=== PATIENT | male | born 1970 | race Caucasian/White ===

== ENCOUNTER 2017-05-05 00:21 | Emergency (ER) | payer MEDICARE, MEDICAID ==
--- NOTE | 2017-05-05 00:39 | EDM.PDOC ---
ED HPI GENERAL MEDICAL PROBLEM - General Chief Complaint: Chest Pain Stated Complaint: [facility] Time Seen by Provider: 05/05/17 00:39 - History of Present Illness INITIAL COMMENTS - FREE TEXT/NARRATIVE: 46-year-old male presents to the emergency room with severe chest pain and abdominal pain. Patient had fairly recent with the last hour onset of severe chest discomfort on the right side of his chest and in his midabdomen. He also complains of his heart was beating really fast. Patient has not had pain like this in the past there working with him on his anxiety. Patient denies any nausea vomiting fevers or chills. Patient describes the chest pain as burning in nature and a little bit sharp at times he points to the substernal area. The patient does not have problems with reflux or dyspepsia in the past. Right Pain Score (Numeric/FACES): 10 - Related Data Allergies Allergy/AdvReac Type Severity Reaction Status Date / Time No Known Allergies Allergy Verified 05/05/17 00:25 Home Meds: Home Meds Loratadine 10 mg PO DAILY 05/05/17 [History] Multivit-Min/FA/Lycopene/Lut [Certavite Sr-Antioxidant Tab] 1 tab PO DAILY 05/05 [History] Naproxen Sodium [Aleve] 220 mg PO BID PRN 05/05/17 [History] Pantoprazole Sodium [Protonix] 40 mg PO Q24H #30 tablet. 05/05/17 [Rx] Polyethylene Glycol 3350 [MiraLAX] 17 gm PO DAILY 05/05/17 [History] Sucralfate [Carafate] 1 gm PO QID #28 tablet 05/05/17 [Rx] buPROPion HCl [Wellbutrin Xl] 300 mg PO ACBREAKFAST 05/05/17 [History] buPROPion [buPROPion XL] 150 mg PO ACBREAKFAST 05/05/17 [History] Past Medical History HEENT History: Reports: Impaired Vision Other HEENT History: Wears reading glasses Genitourinary History: Reports: Urinary Incontinence Social & Family History - Tobacco Use Smoking Status *Q: Never Smoker - Caffeine Use Caffeine Use: Reports: None - Recreational Drug Use Recreational Drug Use: No ED ROS GENERAL - Review of Systems Review Of Systems: See Below Constitutional: Reports: No Symptoms HEENT: Reports: No Symptoms Respiratory: Reports: No Symptoms Cardiovascular: Reports: Chest Pain. Denies: Dyspnea on Exertion, Palpitations GI/Abdominal: Reports: Abdominal Pain (Epigastric). Denies: Constipation, Diarrhea, Nausea, Vomiting : Reports: No Symptoms Musculoskeletal: Reports: No Symptoms Skin: Reports: No Symptoms Neurological: Reports: No Symptoms Psychiatric: Reports: Anxiety, Other (Patient does not feel overly anxious at this time) Hematologic/Lymphatic: Reports: No Symptoms Immunologic: Reports: No Symptoms ED EXAM, GENERAL - Physical Exam Exam: See Below Exam Limited By: No Limitations General Appearance: Alert, No Apparent Distress Head: Atraumatic, Normocephalic Neck: Normal Inspection, Supple, Non-Tender, Full Range of Motion Respiratory/Chest: No Respiratory Distress, Lungs Clear, Normal Breath Sounds, Chest Non-Tender Cardiovascular: Regular Rate, Rhythm, No Edema, No Murmur GI/Abdominal: Normal Bowel Sounds, Soft, Other (She has marked midepigastric and left upper quadrant discomfort with palpation to a lesser degree right upper quadrant tenderness with palpation.). No: Distended, Guarding, Rigid, Rebound Back Exam: Normal Inspection. No: CVA Tenderness (L), CVA Tenderness (R), Vertebral Tenderness Extremities: Normal Inspection, No Pedal Edema Neurological: Alert, Oriented Psychiatric: Normal Affect, Normal Mood Course - Vital Signs Last Recorded V/S: Last Vital Signs Temp 35.9 C 05/05/17 00:25 Pulse 76 05/05/17 00:25 Resp 23 H 05/05/17 00:25 BP 141/90 H 05/05/17 00:25 Pulse Ox 95 05/05/17 00:25 - Orders/Labs/Meds Orders: Active Orders 24 hr Category Date Time Status EKG 12 Lead [EKG Documentation Completion] [RC] STAT Care 05/05/17 00:41 Active Chest 2V [CR] Stat Exams 05/05/17 00:47 Taken Labs: Laboratory Tests 05/05/17 05/05/17 05/05/17 Range/Units 00:30 00:30 00:30 WBC 5.69 (4.23-9.07) K/mm3 RBC 5.26 (4.63-6.08) M/mm3 Hgb 15.1 (13.7-17.5) gm/L Hct 44.7 (40.1-51.0) % MCV 85.0 (79.0-92.2) fl MCH 28.7 (25.7-32.2) pg MCHC 33.8 (32.2-35.5) g/dl RDW Std Deviation 40.1 (35.1-43.9) fL Plt Count 278 (163-337) K/mm3 MPV 9.4 (9.4-12.3) fl Neutrophils % (Manual) 61 H (40-60) % Band Neutrophils % 0 (0-10) % Lymphocytes % (Manual) 29 (20-40) % Atypical Lymphs % 0 % Monocytes % (Manual) 6 (2-10) % Eosinophils % (Manual) 4 (0.8-7.0) % Basophils % (Manual) 0 L (0.2-1.2) Platelet Estimate Adequate RBC Morph Comment Normal PT 10.9 (8.0-13.0) SECONDS INR 1.02 APTT 27 (22-36) SECONDS Sodium 142 (136-145) mEq/L Potassium 3.6 (3.5-5.1) mEq/L Chloride 105 (98-107) mEq/L Carbon Dioxide 25 (21-32) mEq/L Anion Gap 15.6 H (5-15) BUN 26 H (7-18) mg/dL Creatinine 1.1 (0.7-1.3) mg/dL Est Cr Clr Drug Dosing 82.91 mL/min Estimated GFR (MDRD) > 60 (>60) mL/min BUN/Creatinine Ratio 23.6 H (14-18) Glucose 125 H (74-106) mg/dL Calcium 8.7 (8.5-10.1) mg/dL Total Bilirubin 0.7 (0.2-1.0) mg/dL AST 23 (15-37) U/L ALT 29 (16-63) U/L Alkaline Phosphatase 81 (46-116) U/L Troponin I < 0.017 (0.00-0.056) ng/mL Total Protein 7.1 (6.4-8.2) g/dl Albumin 4.4 (3.4-5.0) g/dl Globulin 2.7 gm/dL Albumin/Globulin Ratio 1.6 (1-2) Urine Color (Yellow) Urine Appearance (Clear) Urine pH (5.0-8.0) Ur Specific [place] (1.005-1.030) Urine Protein (Negative) Urine Glucose (UA) (Negative) Urine Ketones (Negative) Urine Occult Blood (Negative) Urine Nitrite (Negative) Urine Bilirubin (Negative) Urine Urobilinogen (0.2-1.0) Ur Leukocyte Esterase (Negative) Urine RBC (0-5) /hpf Urine WBC (0-5) /hpf Ur Epithelial Cells (0-5) /hpf Amorphous Sediment (NOT SEEN) /hpf Urine Bacteria (FEW) /hpf Urine Mucus (FEW) /hpf /16/18 Range/Units 03:15 WBC (4.23-9.07) K/mm3 RBC (4.63-6.08) M/mm3 Hgb (13.7-17.5) gm/L Hct (40.1-51.0) % MCV (79.0-92.2) fl MCH (25.7-32.2) pg MCHC (32.2-35.5) g/dl RDW Std Deviation (35.1-43.9) fL Plt Count (163-337) K/mm3 MPV (9.4-12.3) fl Neutrophils % (Manual) (40-60) % Band Neutrophils % (0-10) % Lymphocytes % (Manual) (20-40) % Atypical Lymphs % % Monocytes % (Manual) (2-10) % Eosinophils % (Manual) (0.8-7.0) % Basophils % (Manual) (0.2-1.2) Platelet Estimate RBC Morph Comment PT (8.0-13.0) SECONDS INR APTT (22-36) SECONDS Sodium (136-145) mEq/L Potassium (3.5-5.1) mEq/L Chloride (98-107) mEq/L Carbon Dioxide (21-32) mEq/L Anion Gap (5-15) BUN (7-18) mg/dL Creatinine (0.7-1.3) mg/dL Est Cr Clr Drug Dosing mL/min Estimated GFR (MDRD) (>60) mL/min BUN/Creatinine Ratio (14-18) Glucose (74-106) mg/dL Calcium (8.5-10.1) mg/dL Total Bilirubin (0.2-1.0) mg/dL AST (15-37) U/L ALT (16-63) U/L Alkaline Phosphatase (46-116) U/L Troponin I (0.00-0.056) ng/mL Total Protein (6.4-8.2) g/dl Albumin (3.4-5.0) g/dl Globulin gm/dL Albumin/Globulin Ratio (1-2) Urine Color Yellow (Yellow) Urine Appearance Clear (Clear) Urine pH 7.5 (5.0-8.0) Ur Specific [place] 1.020 (1.005-1.030) Urine Protein Trace H (Negative) Urine Glucose (UA) Negative (Negative) Urine Ketones Trace H (Negative) Urine Occult Blood Negative (Negative) Urine Nitrite Negative (Negative) Urine Bilirubin Negative (Negative) Urine Urobilinogen 2.0 H (0.2-1.0) Ur Leukocyte Esterase Negative (Negative) Urine RBC 0-5 (0-5) /hpf Urine WBC 0-5 (0-5) /hpf Ur Epithelial Cells 0-5 (0-5) /hpf Amorphous Sediment Many H (NOT SEEN) /hpf Urine Bacteria Moderate H (FEW) /hpf Urine Mucus Few (FEW) /hpf Meds: Medications Discontinued Medications Generic Name Dose Route Start Last Admin Trade Name Freq PRN Reason Stop Dose Admin Aspirin 324 mg 05/05/17 00:47 05/05/17 00:51 Aspirin PO 05/05/17 00:48 324 mg ONETIME ONE Administration Al Hydroxide/Mg Hydroxide 30 0 ml 05/05/17 00:47 05/05/17 01:22 ml/ Lidocaine HCl 15 ml PO 05/05/17 00:48 45 ml ONETIME ONE Administration Pantoprazole Sodium 40 mg 05/05/17 03:03 05/05/17 03:11 Protonix PO 05/05/17 03:04 40 mg ONETIME ONE Administration Sucralfate 1 gm 05/05/17 04:48 05/05/17 04:58 Carafate PO 05/05/17 04:49 1 gm ONETIME ONE Administration - Re-Assessments/Exams Free Text/Narrative Re-Assessment/Exam: 05/05/17 03:02 Patient had significant improvement from his chest discomfort after the GI cocktail. Repeat examination shows no epigastric discomfort no right or left upper quadrant discomfort he has some suprapubic discomfort and some discomfort just to the right. No rigidity rebound or guarding noted He still complains of some lower abdominal discomfort we'll check a UA. 05/05/17 04:45 Urinalysis does not suggest an infectious process he has some contamination present. Patient will be discharged on PPI therapy and a short course of Carafate. Departure - Departure Time of Disposition: 04:50 Disposition: Home, Self-Care 01 Clinical Impression: Chest pain, Gastroesophageal reflux disease - Discharge Information Prescriptions: Pantoprazole Sodium [Protonix] 40 mg PO Q24H #30 tablet. Sucralfate [Carafate] 1 gm PO QID #28 tablet Referrals: Krishan Rea MD [Primary Care Provider] - Forms: ED Department Discharge Additional Instructions: Return to the emergency room with any questions problems worsening symptoms. Follow-up with your regular doctor this next week. Discuss if you should have a stress test done. You been started on 2 new medications the first one is Protonix take this 30-60 minutes before your morning meal. The second medication is Carafate take this 4 times a day before each meal and at bedtime for 1 week. Take your routine medications either 1 hour before 2 hours after taking the Carafate - My Orders Last 24 Hours: My Active Orders 05/05/17 00:41 EKG 12 Lead [EKG Documentation Completion] [RC] STAT 05/05/17 00:47 Chest 2V [CR] Stat - Assessment/Plan Last 24 Hours: My Active Orders 05/05/17 00:41 EKG 12 Lead [EKG Documentation Completion] [RC] STAT 05/05/17 00:47 Chest 2V [CR] Stat
[2017-05-05] MEDS: Aspirin 81 MG Tab.Chew PO ONE (00:51)
[2017-05-05] MEDS: Alum Hydrox/Mag Hydrox/Simeth 30 ML, Lidocaine 2% 15 ML PO ONE ×2 (01:22)
[2017-05-05] MEDS: Pantoprazole 40 MG Tab.CR PO ONE (03:11)
[2017-05-05] MEDS: Sucralfate Suspension 1 GM/10 ML Cup PO ONE (04:58)
--- NOTE | 2017-05-05 08:17 | CR ---
Chest: Two views of the chest were obtained. Comparison: No prior chest x-ray. Heart size and mediastinum are normal. Lungs are felt to be clear. Bony structures are within normal limits for the patient's age. Impression: 1. Nothing acute is identified on two-view chest x-ray. Diagnostic code #1
== END 2017-05-05 05:25 | disposition home or self-care (01) ==
LOC: JD.ED 00:21
DX: K21.9 Gastro-esophageal reflux disease without esophagitis (principal); Z79.899 Other long term (current) drug therapy
CPT/HCPCS: 36415; 71046; 80053; 81001; 84484; 85025; 85610; 85730; 93005; 99285; A9270

== ENCOUNTER 2017-08-14 22:32 | Emergency (ER) | payer MEDICARE, MEDICAID ==
[2017-08-15] MEDS ORDERED: Ondansetron 4 MG/2 ML SDV IVPUSH ONE (02:10)
[2017-08-15] MEDS ORDERED: HYDROmorphone 0.5 MG/0.5 ML SYRINGE IVPUSH ONE (02:11)
[2017-08-15] MEDS ORDERED: Sodium Chloride 0.9% 1,000 ML IV SCH (02:15)
--- NOTE | 2017-08-15 02:25 | EDM.PDOC ---
ED HPI GENERAL MEDICAL PROBLEM - General Chief Complaint: Gastrointestinal Problem Stated Complaint: [facility] Time Seen by Provider: 08/15/17 01:39 Source of Information: Reports: Patient, Other (2 caregivers from [facility]) History Limitations: Reports: No Limitations - History of Present Illness INITIAL COMMENTS - FREE TEXT/NARRATIVE: The patient states that he developed lower abdominal cramps, nausea, and vomiting around 17:00 this evening, after eating at a [employer] sandwich for lunch. He reportedly had watery diarrhea 2 days ago, but none today. No recent fever. No urinary symptoms. The patient took 2 doses of an [id number] gastrointestinal medicine at 19: 00 and 21:00, without relief. No prior similar symptoms. The patient's PCP is Dr. Rea. Abdomen Pain Score (Numeric/FACES): 10 - Related Data Allergies Allergy/AdvReac Type Severity Reaction Status Date / Time No Known Allergies Allergy Verified 05/05/17 00:25 Home Meds: Home Meds Loratadine 10 mg PO DAILY 05/05/17 [History] Multivit-Min/FA/Lycopene/Lut [Certavite Sr-Antioxidant Tab] 1 tab PO DAILY 05/05 [History] Polyethylene Glycol 3350 [MiraLAX] 17 gm PO DAILY 05/05/17 [History] buPROPion HCl [Wellbutrin Xl] 300 mg PO ACBREAKFAST 05/05/17 [History] buPROPion [buPROPion XL] 150 mg PO ACBREAKFAST 05/05/17 [History] Naproxen Sodium [Aleve] 220 mg PO BID PRN 08/14/17 [History] Prazosin [Minpress] 2 mg PO BEDTIME 08/14/17 [History] Ondansetron [Zofran ODT] 1 tab PO Q8H PRN #10 tab.dis 08/15/17 [Rx] Past Medical History HEENT History: Reports: Allergic Rhinitis, Impaired Vision Other HEENT History: Wears reading glasses Gastrointestinal History: Reports: Diverticulosis (per CT scan 08/14/2017) Genitourinary History: Reports: Urinary Incontinence Musculoskeletal History: Reports: Back Pain, Chronic, Other (See Below) ( Chronic right foot pain) Neurological History: Reports: Headaches, Chronic Psychiatric History: Reports: Developmental Delay Social & Family History - Tobacco Use Smoking Status *Q: Never Smoker - Caffeine Use Caffeine Use: Reports: None - Alcohol Use Alcohol Use History: Yes Alcohol Use Frequency: Socially - Recreational Drug Use Recreational Drug Use: No - Living Situation & Occupation Living situation: Reports: Single, Alone Occupation: Unemployed ED ROS GENERAL - Review of Systems Review Of Systems: ROS reveals no pertinent complaints other than HPI. ED EXAM, GI/ABD - Physical Exam Exam: See Below Exam Limited By: No Limitations General Appearance: Alert, WD/WN, No Apparent Distress Eyes: Bilateral: Normal Appearance, EOMI Ears: Normal External Exam, Hearing Grossly Normal Nose: Normal Inspection, No Blood Throat/Mouth: Normal Inspection, Normal Lips, Normal Voice, No Airway Compromise Head: Atraumatic, Normocephalic Neck: Normal Inspection, Full Range of Motion Respiratory/Chest: No Respiratory Distress, Lungs Clear, Normal Breath Sounds, No Accessory Muscle Use Cardiovascular: Normal Peripheral Pulses, Regular Rate, Rhythm, No Edema, No Gallop, No JVD, No Murmur, No Rub GI/Abdominal Exam: Normal Bowel Sounds, Soft, No Organomegaly, No Distention, No Abnormal Bruit, No Mass, Tender (Lower abdomen only. Nontender elsewhere.) (Male) Exam: Deferred Rectal (Males) Exam: Deferred Back Exam: Normal Inspection, Full Range of Motion. No: CVA Tenderness (L), CVA Tenderness (R) Extremities: Normal Inspection, Normal Range of Motion, No Pedal Edema, Normal Capillary Refill Neurological: Alert, Oriented, No Motor/Sensory Deficits, Other (Mildly diminished cognitive ability) Psychiatric: Normal Affect Skin Exam: Warm, Dry, Intact, Normal Color, No Rash Course - Vital Signs Last Recorded V/S: Last Vital Signs Temp 36.5 C 08/14/17 22:34 Pulse 108 H 08/14/17 22:34 Resp 16 08/14/17 22:34 BP 136/96 H 08/14/17 22:34 Pulse Ox 96 08/14/17 22:34 - Orders/Labs/Meds Orders: Active Orders 24 hr Category Date Time Status Abdomen Pelvis w Cont [CT] Stat Exams 08/15/17 02:10 Taken UA W/MICROSCOPIC [URIN] Stat Lab 08/15/17 02:13 Ordered Sodium Chloride 0.9% [Normal Saline] 1,000 ml Med 08/15/17 02:15 Active IV ASDIRECTED Medication Orders Sodium Chloride (Normal Saline) 1,000 mls @ 150 mls/hr IV ASDIRECTED CAM Last Admin: 08/15/17 02:24 Dose: 150 mls/hr Labs: Laboratory Tests 08/15/17 08/15/17 08/15/17 Range/Units 02:10 02:13 02:21 WBC 5.34 (4.23-9.07) K/mm3 RBC 5.16 (4.63-6.08) M/mm3 Hgb 14.9 (13.7-17.5) gm/L Hct 43.8 (40.1-51.0) % MCV 84.9 (79.0-92.2) fl MCH 28.9 (25.7-32.2) pg MCHC 34.0 (32.2-35.5) g/dl RDW Std Deviation 38.8 (35.1-43.9) fL Plt Count 232 (163-337) K/mm3 MPV 9.3 L (9.4-12.3) fl Neutrophils % (Manual) 62 H (40-60) % Band Neutrophils % 0 (0-10) % Lymphocytes % (Manual) 26 (20-40) % Atypical Lymphs % 0 % Monocytes % (Manual) 11 H (2-10) % Eosinophils % (Manual) 1 (0.8-7.0) % Basophils % (Manual) 0 L (0.2-1.2) Platelet Estimate Adequate Plt Morphology Comment Normal RBC Morph Comment Normal Sodium 140 (136-145) mEq/L Potassium 3.8 (3.5-5.1) mEq/L Chloride 104 (98-107) mEq/L Carbon Dioxide 28 (21-32) mEq/L Anion Gap 11.8 (5-15) BUN 19 H (7-18) mg/dL Creatinine 0.9 (0.7-1.3) mg/dL Est Cr Clr Drug Dosing 100.28 mL/min Estimated GFR (MDRD) > 60 (>60) mL/min BUN/Creatinine Ratio 21.1 H (14-18) Glucose 109 H (74-106) mg/dL Calcium 8.5 (8.5-10.1) mg/dL Total Bilirubin 0.7 (0.2-1.0) mg/dL AST 19 (15-37) U/L ALT 27 (16-63) U/L Alkaline Phosphatase 82 (46-116) U/L Total Protein 6.9 (6.4-8.2) g/dl Albumin 4.0 (3.4-5.0) g/dl Globulin 2.9 gm/dL Albumin/Globulin Ratio 1.4 (1-2) Lipase 101 (73-393) U/L Urine Color Yellow (Yellow) Urine Appearance Clear (Clear) Urine pH 6.5 (5.0-8.0) Ur Specific [place] 1.020 (1.005-1.030) Urine Protein Negative (Negative) Urine Glucose (UA) Negative (Negative) Urine Ketones Negative (Negative) Urine Occult Blood Negative (Negative) Urine Nitrite Negative (Negative) Urine Bilirubin Negative (Negative) Urine Urobilinogen 0.2 (0.2-1.0) Ur Leukocyte Esterase Negative (Negative) Urine RBC 0-5 (0-5) /hpf Urine WBC 0-5 (0-5) /hpf Ur Epithelial Cells 0-5 (0-5) /hpf Urine Bacteria Not seen (FEW) /hpf Urine Mucus Not seen (FEW) /hpf Meds: Medications Generic Name Dose Route Start Last Admin Trade Name Freq PRN Reason Stop Dose Admin Sodium Chloride 1,000 mls @ 150 mls/hr 08/15/17 02:15 08/15/17 02:24 Normal Saline IV 150 mls/hr ASDIRECTED CAM Administration Discontinued Medications Generic Name Dose Route Start Last Admin Trade Name Parris PRN Reason Stop Dose Admin Diatrizoate Meglum/Diatrizoate Sod 90 ml 08/15/17 03:36 08/15/17 03:55 Gastrografin 37% PO 08/15/17 03:37 90 ml ONETIME ONE Administration Hydromorphone HCl 0.5 mg 08/15/17 02:11 08/15/17 02:25 Dilaudid IVPUSH 08/15/17 02:12 0.5 mg ONETIME ONE Administration Iopamidol 120 ml 08/15/17 03:36 08/15/17 03:55 Isovue-300 (61%) IVPUSH 08/15/17 03:37 120 ml ONETIME ONE Administration Ondansetron HCl 4 mg 08/15/17 02:10 08/15/17 02:29 Zofran IVPUSH 08/15/17 02:11 4 mg ONETIME ONE Administration - Re-Assessments/Exams Free Text/Narrative Re-Assessment/Exam: 08/15/17 04:57 CT of the abdomen and pelvis with oral and IV contrast is read by [facility] as: Small amount of oral contrast is noted within the distal esophagus; correlate clinically for gastroesophageal reflux disease. Otherwise, no evidence of acute abdominopelvic pathology. 08/15/17 05:00 Test results discussed with the patient and one of his caregivers. Guilherme's workup is entirely unremarkable. He is likely suffering from viral gastroenteritis. I will prescribe Zofran. The patient was asking what can be done about constipation. Guilherme CT scan does not indicate that the patient has constipation, but going forward, I'm recommending [id number] Metamucil. Departure - Departure Time of Disposition: 05:02 Disposition: Home, Self-Care 01 Condition: Good Clinical Impression: Viral gastroenteritis - Discharge Information Referrals: Krishan Rea MD [Primary Care Provider] - Forms: ED Department Discharge Additional Instructions: You were seen in the emergency room for nausea, vomiting, and lower abdominal cramps, with a recent history of diarrhea. Workup in the ER included blood work, a urinalysis, and a CT scan of your abdomen and pelvis. Your entire workup was unremarkable, and does not explain the cause of your symptoms. Based on your history and physical examination, you are MOST LIKELY suffering from viral gastroenteritis. Unfortunately, there are no medicines to treat a viral illness - it will have to run its course. A prescription for the anti-nausea medicine Zofran has been sent to the [facility], [address] located across [address] from [facility]. Dissolve 1 tablet on your tongue up to every 8 hours, as needed for nausea/ vomiting. If your symptoms persist, please follow-up with Dr. Rea later this week. If any other problems, please do not hesitate to return to the ER. - My Orders Last 24 Hours: My Active Orders 08/15/17 02:10 Abdomen Pelvis w Cont [CT] Stat 08/15/17 02:13 UA W/MICROSCOPIC [URIN] Stat 08/15/17 02:15 Sodium Chloride 0.9% [Normal Saline] 1,000 ml IV ASDIRECTED - Assessment/Plan Last 24 Hours: My Active Orders 08/15/17 02:10 Abdomen Pelvis w Cont [CT] Stat 08/15/17 02:13 UA W/MICROSCOPIC [URIN] Stat 08/15/17 02:15 Sodium Chloride 0.9% [Normal Saline] 1,000 ml IV ASDIRECTED
[2017-08-15] MEDS ORDERED: Iopamidol 612 MG/ML 150 ML Bottle IVPUSH ONE (03:36)
[2017-08-15] MEDS ORDERED: Diatrizoate Meglumine/Diatrizoate Sodium 37% 120 ML Bottle PO ONE (03:36)
--- NOTE | 2017-08-15 08:46 | CT ---
CT abdomen and pelvis Technique: Multiple axial sections were obtained from above the dome of the diaphragm inferiorly through the pubic symphysis. Intravenous and oral contrast was utilized. Delayed images were also obtained through the pelvis. Comparison: No previous CT abdomen or pelvis exam. Findings: Visualized lung bases show nothing acute. Liver and spleen appear within normal limits. Small amount of contrast is seen within the distal esophagus compatible with slight reflux. Gallbladder contains no calcified gallstones. Pancreas is within normal limits. Aorta shows no aneurysmal dilatation. 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 Extrarenal pelvis noted within both sides of the collecting system as incidental note. No ureteral dilatation is seen. No retroperitoneal adenopathy or mesenteric abnormalities are seen. Appendix is seen which is normal. Minimal diverticuli are seen within the sigmoid colon. Delayed images show no contrast within the bladder. No free fluid or inflammatory change is seen. Bone window settings were reviewed which show disc space narrowing and vacuum phenomena at L4-L5. Minimal retrolisthesis seen at L1-L2 through L4-L5 due to degenerative apophyseal change. Impression: 1. Incidental findings as noted above. Nothing acute is seen on CT study of the abdomen and pelvis. Diagnostic code #2 I agree with preliminary report issued by [employer] ([facility] preliminary report dictated on 08/15/17, 5:52 AM Central Time)
== END 2017-08-15 05:32 | disposition home or self-care (01) ==
LOC: JD.ED 22:32
DX: A08.4 Viral intestinal infection, unspecified (principal); Z79.899 Other long term (current) drug therapy
CPT/HCPCS: 36415; 74177; 80053; 81001; 83690; 85007; 85027; 96361; 96374; 96375; 99285; J1170; J2405; J7040; Q9963; Q9967; 99284

== ENCOUNTER 2020-09-24 19:50 | Emergency (ER) | payer MEDICARE, MEDICAID ==
[2020-09-24] MEDS ORDERED: Ondansetron 4 MG/2 ML SDV IVPUSH ONE (20:41)
[2020-09-24] MEDS ORDERED: HYDROmorphone 0.5 MG/0.5 ML Syringe IVPUSH ONE (20:41)
[2020-09-24] MEDS ORDERED: Sodium Chloride 0.9% 1,000 ML IV SCH (20:45)
--- NOTE | 2020-09-24 20:47 | EDM.PDOC ---
ED HPI GENERAL MEDICAL PROBLEM - General Chief Complaint: Chest Pain Stated Complaint: [facility] Time Seen by Provider: 09/24/20 19:57 Source of Information: Reports: Patient, Other (ABLE caregiver) History Limitations: Reports: Physical Impairment (Intellectually disabled) - History of Present Illness INITIAL COMMENTS - FREE TEXT/NARRATIVE: Mr. Jorgensen is a very pleasant 50-year-old gentleman who is now brought to the ED by EMS with a complaint of chest pain, however, when I asked him to show me where his pain was, he indicated his epigastric and right upper quadrant area, although he states that the pain radiates down towards his groin. He states that he fell onto his abdomen around 19:00, however, his ABLE caregiver, who lives with him, and was downstairs at the time, reports that when she heard a sound, she asked him what it happened, and he reported that he had dropped his water bottle. The triage note indicates that he may have fallen onto his bed. He states that he developed sharp chest pain after he fell. No prior similar symptoms. Here in the ED, the patient's initial BP is found to be slightly elevated at 137/101, otherwise, he is hemodynamically stable, afebrile, saturating 96% on room air. He appears to be relatively comfortable, in no acute distress. Prior to yordan's fall, the patient ABLE caregiver states that the patient has recently had some watery diarrhea. Otherwise, he denies having a recent fever, chills, sore throat, ear pain, nasal or sinus congestion, cough, dyspnea, chest pain, palpitations, nausea, vomiting, constipation, abdominal pain, urinary symptoms, recent weight gain or weight loss, recent bloody bowel movements or black bowel movements, recent joint aches, headaches, or rashes. The patient's PCP is Dr. Krishan Rea. His Nursing Information Systems Coordinator is Dr. Romero Dey. Chest Pain Score (Numeric/FACES): 10 Abdominal Pain Score (Numeric/FACES): 10 Back Pain Score (Numeric/FACES): 10 - Related Data Allergies Allergy/AdvReac Type Severity Reaction Status Date / Time No Known Allergies Allergy Verified 09/24/20 20:03 Home Meds: Home Meds Loratadine 10 mg PO DAILY 05/05/17 [History] Multivit-Min/FA/Lycopen/Lutein [Certavite Sr-Antioxidant Tab] 1 tab PO DAILY 05/05/17 [History] buPROPion HCL [Wellbutrin Xl] 300 mg PO ACBREAKFAST 05/05/17 [History] buPROPion [buPROPion XL] 150 mg PO ACBREAKFAST 05/05/17 [History] polyethylene glycoL 3350 [MiraLAX] 17 gm PO DAILY 05/05/17 [History] Naproxen Sodium [Aleve] 220 mg PO BID PRN 08/14/17 [History] Prazosin [Minpress] 2 mg PO BEDTIME 08/14/17 [History] Ondansetron [Zofran ODT] 1 tab PO Q8H PRN #10 tab.dis 08/15/17 [Rx] Past Medical History HEENT History: Reports: Allergic Rhinitis, Impaired Vision (reading glasses) Gastrointestinal History: Reports: Diverticulosis (per CT scan 08/17/2017) Genitourinary History: Reports: Urinary Incontinence Psychiatric History: Reports: Developmental Delay Endocrine/Metabolic History: Reports: Obesity/BMI 30+ - Past Surgical History Musculoskeletal Surgical History: Reports: Other (See Below) (Left foot bone spur removal) Social & Family History - Tobacco Use Tobacco Use Status *Q: Never Tobacco User - Caffeine Use Caffeine Use: Reports: None - Alcohol Use Alcohol Use History: Yes Alcohol Use Frequency: Socially - Recreational Drug Use Recreational Drug Use: No - Living Situation & Occupation Living situation: Reports: Single, Other (With ABLE caregiver) 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 ED EXAM, GENERAL - Physical Exam Exam: See Below Exam Limited By: No Limitations General Appearance: Alert, WD/WN, No Apparent Distress Eye Exam: Bilateral Eye: EOMI, Normal Inspection Ears: Normal External Exam, Hearing Grossly Normal Nose: Normal Inspection Throat/Mouth: Normal Inspection, Normal Lips, Normal Voice, No Airway Compromise Head: Atraumatic, Normocephalic Neck: Normal Inspection, Full Range of Motion Respiratory/Chest: No Respiratory Distress, Lungs Clear, Normal Breath Sounds, No Accessory Muscle Use, Other (The patient indicates that he has anterior chest pain with inspiration. He winces with palpation of his anterior chest. No visible abnormality to the anterior chest.). No: Decreased Breath Sounds, Crackles, Rhonchi, Wheezing, Stridor, Prolonged Expiration Cardiovascular: Normal Peripheral Pulses, Regular Rate, Rhythm, No Gallop, No JVD, No Murmur, No Rub Peripheral Pulses: 3+: Radial (L), Radial (R) GI/Abdominal: Normal Bowel Sounds, Soft, No Organomegaly, No Distention, No Abnormal Bruit, No Mass, Tender (The patient winces to palpation of his entire abdomen. No visible abnormality to the abdomen, such as swelling, erythema, ecchymosis, or abrasion.) Back Exam: Normal Inspection, Full Range of Motion, NT Extremities: Normal Inspection, Normal Range of Motion, Normal Capillary Refill Neurological: Alert, Oriented, No Motor/Sensory Deficits, Other (Intellectual/cognitive impairment) Psychiatric: Normal Affect Skin Exam: Warm, Dry, Intact, Normal Color, No Rash #1 Interpretation EKG Date: 09/24/20 Time: 19:59 Rhythm: NSR Rate (Beats/Min): 71 [place]: Normal P-Wave: Present QRS: Other (Late transition) ST-T: Normal QT: Normal Comparison: Change From Previous EKG (Late transition new since 05/05/2017) Course - Vital Signs Last Recorded V/S: Last Vital Signs Temp 36.3 C 09/24/20 19:56 Pulse 80 09/25/20 01:15 Resp 20 09/25/20 01:15 BP 95/60 09/25/20 01:15 Pulse Ox 97 09/25/20 01:15 - Orders/Labs/Meds Orders: Active Orders 24 hr Category Date Time Status Abdomen Pelvis w Cont [CT] Stat Exams 09/24/20 20:37 Taken Chest 2V [CR] Stat Exams 09/24/20 20:37 Taken Labs: Laboratory Tests 09/24/20 09/24/20 09/24/20 Range/Units 20:50 20:50 20:50 WBC 6.24 (4.23-9.07) K/mm3 RBC 5.06 (4.63-6.08) M/mm3 Hgb 14.7 (13.7-17.5) gm/dl Hct 43.6 (40.1-51.0) % MCV 86.2 (79.0-92.2) fl MCH 29.1 (25.7-32.2) pg MCHC 33.7 (32.2-35.5) g/dl RDW Std Deviation 40.7 (35.1-43.9) fL Plt Count 242 (163-337) K/mm3 MPV 9.0 L (9.4-12.3) fl Neutrophils % (Manual) 64 H (40-60) % Band Neutrophils % 0 (0-10) % Lymphocytes % (Manual) 29 (20-40) % Atypical Lymphs % 0 % Monocytes % (Manual) 2 (2-10) % Eosinophils % (Manual) 4 (0.8-7.0) % Basophils % (Manual) 1 (0.2-1.2) Platelet Estimate Adequate RBC Morph Comment Normal D-Dimer, Quantitative < 0.19 L (0.19-0.50) mg/L Sodium 143 (136-145) mEq/L Potassium 3.7 (3.5-5.1) mEq/L Chloride 105 (98-107) mEq/L Carbon Dioxide 28 (21-32) mEq/L Anion Gap 13.7 (5-15) BUN 18 (7-18) mg/dL Creatinine 0.9 (0.7-1.3) mg/dL Est Cr Clr Drug Dosing 97.11 mL/min Estimated GFR (MDRD) > 60 (>60) mL/min BUN/Creatinine Ratio 20.0 H (14-18) Glucose 108 H (70-99) mg/dL Calcium 8.7 (8.5-10.1) mg/dL Total Bilirubin 0.8 (0.2-1.0) mg/dL AST 18 (15-37) U/L ALT 29 (16-63) U/L Alkaline Phosphatase 71 (46-116) U/L Troponin I < 0.017 (0.00-0.056) ng/mL Total Protein 6.7 (6.4-8.2) g/dl Albumin 4.1 (3.4-5.0) g/dl Globulin 2.6 gm/dL Albumin/Globulin Ratio 1.6 (1-2) Lipase 86 (73-393) U/L Meds: Medications Discontinued Medications Generic Name Dose Route Start Last Admin Trade Name Freq PRN Reason Stop Dose Admin Hydromorphone HCl 0.5 mg 09/24/20 20:41 09/24/20 20:57 Hydromorphone 0.5 Mg/0.5 Ml Syringe IVPUSH 09/24/20 20:42 0.5 mg ONETIME ONE Administration Sodium Chloride 1,000 mls @ 150 mls/hr 09/24/20 20:45 09/24/20 20:56 Normal Saline IV 150 mls/hr ASDIRECTED CAM Administration Iopamidol 50 ml 09/24/20 20:49 Iopamidol 612 Mg/Ml 50 Ml Sdv IVPUSH 09/24/20 20:50 ONETIME ONE Iopamidol 100 ml 09/24/20 20:49 Iopamidol 612 Mg/Ml 100 Ml Bottle IVPUSH 09/24/20 20:50 ONETIME ONE Ondansetron HCl 4 mg 09/24/20 20:41 09/24/20 20:54 Ondansetron 4 Mg/2 Ml Sdv IVPUSH 09/24/20 20:42 4 mg ONETIME ONE Administration Sodium Chloride 10 ml 09/24/20 21:00 Sodium Chloride 0.9% 10 Ml Syringe FLUSH ASDIRECTED CAM - Re-Assessments/Exams Free Text/Narrative Re-Assessment/Exam: 09/24/20 20:42 As above, it appears that the patient fell onto his abdomen around 19:00 this evening, however, it is unclear why he fell. He states that he did not trip. He told me that he had felt dizzy, but his ABLE caregiver tells me that when she asked him about it, he rarely reported that he had dropped his water bottle. Perhaps he fell while trying to pick it up. As a result, however, he is complaining of upper abdominal pain, which he calls chest pain. An ECG, obtained at triage, shows no ischemic changes. On examination, the patient is indicating that he has pain to his entire anterior chest, abdomen, and even groin. There is no visible abnormality, his abdomen is soft, with normal active bowel sounds, so I do not suspect that there is any serious injury, however, given his report of pain and tenderness, I have ordered a work-up that includes orthostatics, several blood tests, a chest x-ray, and a CT of the abdomen and pelvis with oral and IV contrast. In the meantime, the patient will be given some IV Dilaudid, IV Zofran, and IV fluid. 09/24/20 22:44 Two-view chest radiograph reviewed. Poor inspiratory effort. The cardiac silhouette is within normal limits. No pulmonary vascular congestion. No pleural effusions. No focal infiltrate. No pneumothorax. Formal read per the Radiologist pending. The patient's CBC is unremarkable. His CMP is remarkable for slight hyperglycemia of 108, and is otherwise unremarkable. His lipase level is within normal limits at 86. His troponin is undetectably low. His D-dimer is undetectably low. 09/24/20 23:41 CT of the abdomen and pelvis with oral and IV contrast is read by Robbie as "No acute change is identified. 2. Horseshoe kidney. 3. Small nodular density at the left lung base." 09/25/20 00:06 Patient is not orthostatic. 09/25/20 00:52 Test results discussed with the patient and his ABLE caregiver. At this time, the patient appears to be quite comfortable. As above, today's work-up is ent irely unremarkable, with no evidence of injury. His pain is most likely due to slight contusions or strain. He may take [id number] Tylenol or ibuprofen as needed. I will discharge him home. Departure - Departure Time of Disposition: 00:53 Disposition: Home, Self-Care 01 Condition: Good Clinical Impression: Fall at home - Discharge Information *PRESCRIPTION DRUG MONITORING PROGRAM REVIEWED*: Not Applicable *COPY OF PRESCRIPTION DRUG MONITORING REPORT IN PATIENT SOFÍA: Not Applicable Instructions: Nonspecific Chest Pain, Adult, [id number] Referrals: Krishan Rea MD [Primary Care Provider] - Forms: ED Department Discharge Additional Instructions: Mr. Jorgensen was seen in the emergency room after he fell at home, with subsequent chest and abdominal pain. Work-up in the ER included positional blood pressure checks, numerous blood tests, a chest x-ray, a CT of his abdomen and pelvis with oral and IV contrast, and an ECG. His entire work-up was unremarkable, he has not suffered a heart attack. He does not have a blood clot in his lungs. He is not dehydrated or intravascularly depleted. No injuries were found. Based on his history, physical exam, and ER tests, Mr. Jorgensen has most likely strained or slightly bruised some of the soft tissues to his chest and/or abdomen. We recommend that he be given [id number] Tylenol or ibuprofen as needed for discomfort. We recommend that he get plenty of rest tonight, then resume his usual activitie s tomorrow. He should not just lie in bed. If any other problems, please do not hesitate to return Mr. Jorgensen to the ER. Sepsis Event Note (ED) - Evaluation Sepsis Screening Result: No Definite Risk - Focused Exam Vital Signs: Vital Signs Temp Pulse Resp BP Pulse Ox 09/25/20 01:15 80 20 95/60 97 09/24/20 19:56 36.3 C 79 18 137/101 H 96 - My Orders Last 24 Hours: My Active Orders 09/24/20 20:37 Abdomen Pelvis w Cont [CT] Stat Chest 2V [CR] Stat - Assessment/Plan Last 24 Hours: My Active Orders 09/24/20 20:37 Abdomen Pelvis w Cont [CT] Stat Chest 2V [CR] Stat
[2020-09-24] MEDS ORDERED: Iopamidol 612 MG/ML 100 ML Bottle IVPUSH ONE (20:49)
[2020-09-24] MEDS ORDERED: Iopamidol 612 MG/ML 50 ML SDV IVPUSH ONE (20:49)
[2020-09-24] MEDS ORDERED: Sodium Chloride 0.9% 10 ML Syringe FLUSH SCH (21:00)
--- NOTE | 2020-09-25 08:09 | CT ---
CT abdomen and pelvis Technique: Multiple axial sections were obtained from above the dome of the diaphragm inferiorly through the pubic symphysis. Intravenous and oral contrast was utilized. Delayed images were obtained through the bladder. Reconstructed coronal and sagittal images were obtained. Comparison: Prior CT abdomen and pelvis study of 08/15/17. Findings: Visualized lung bases show no acute parenchymal change. Minimal pleural based nodule is partially visualized within the left base measuring about 5 mm. This area was not included on prior CT study. Follow-up chest CT will be recommended in one year. Liver appears within normal limits. Spleen size is normal. Gallbladder contains no calcified gallstones. Adrenal glands show no nodule. Pancreas shows no discrete abnormality. Kidneys show horseshoe configuration. Extrarenal pelves are noted on both sides. No ureteral dilatation or ureteral stone is seen. Minimal atherosclerotic calcification is seen within the aorta. No aneurysm is seen. No retroperitoneal adenopathy is seen. No mesenteric abnormalities are noted. Appendix is seen which is normal. No pelvic mass or adenopathy is seen. Delayed images shows no contrast within the ureters or bladder suggesting the possibility of mild dehydration. Bone window settings were reviewed. Scattered degenerative change is noted within the spine with mild degenerative change also noted within the sacroiliac joints. Impression: 1. Partially visualized nodule within the left lung base. This is most likely benign, however recommend repeat noncontrast chest CT study in one year to confirm. 2. Horseshoe kidney which is stable. 3. Bony structures which appear chronic as noted above. 4. Nothing acute is appreciated on CT study of the abdomen and pelvis. Diagnostic code #3 I agree with preliminary report from [facility], finalized on 09/25/20, 12:34 AM CDT, code 1
--- NOTE | 2020-09-25 09:07 | CR ---
Chest: PA and lateral views of the chest were obtained. Comparison: Prior chest x-ray of 05/05/17. Heart size and mediastinum are within normal limits. Lungs are clear with no acute parenchymal change. Bony structures show nothing acute. Impression: 1. Nothing acute is seen on 2 view chest x-ray. Diagnostic code #1
== END 2020-09-25 01:15 | disposition home or self-care (01) ==
LOC: JD.ED 19:50
DX: R10.13 Epigastric pain (principal); E66.9 Obesity, unspecified; Z68.38 Body mass index [BMI] 38.0-38.9, adult; W18.39XA Other fall on same level, initial encounter; Y92.009 Unspecified place in unspecified non-institutional (private) residence as the place of occurrence of the external cause
CPT/HCPCS: 36415; 71046; 74177; 80053; 83690; 84484; 85007; 85027; 85379; 93005; 96374; 96375; 99285; J1170; J2405; J7030; Q9967; 93010; 99284

== ENCOUNTER 2022-11-16 04:26 | Emergency (ER) | payer MEDICARE, MEDICAID ==
[2022-11-16] MEDS ORDERED: Ondansetron 4 MG/2 ML SDV IVPUSH ONE (04:35)
[2022-11-16] MEDS ORDERED: Sodium Chloride 0.9% 1,000 ML IV ONE (04:35)
[2022-11-16 05:16] LABS: CORONAVIRUS COVID-19 NAA NEGATIVE (NEGATIVE); INFLUENZA A NAA NEGATIVE (NEGATIVE); RESPIRATORY SYNCYTIAL VIR NAA NEGATIVE (NEGATIVE)
[2022-11-16 06:00] LABS: A/G RATIO 1.4 (1-2); BILIRUBIN TOTAL 1.1 mg/dL (0.2-1.0); CALCIUM 8.8 mg/dL (8.5-10.1); EST CRCL DRUG DOSING (CG) 90.72 mL/min; PROTEIN TOTAL,TP 6.8 g/dl (6.4-8.2)
[2022-11-16 06:13] LABS: BASOPHILS PERCENT AUTO 0.5 % (0.0-1.0); EOSINOPHILS ABSOLUTE AUTO 0.1 K/mm3 (0.0-0.4); EOSINOPHILS PERCENT AUTO 1.4 % (0.0-6.0); HEMATOCRIT 40.8 % (42.0-52.0); HEMOGLOBIN 14.4 gm/dl (14.0-18.0); IMMATURE GRAN ABSOLUTE AUTO 0.01 K/mm3 (0.00-0.05); IMMATURE GRAN PERCENT AUTO 0.2 % (0.0-0.4); LYMPHOCYTES ABSOLUTE AUTO 1.1 K/mm3 (1.0-4.8); LYMPHOCYTES PERCENT AUTO 26.3 % (24.0-44.0); MEAN CORPUSCULAR HEMOGLOBIN 30.6 pg (28.0-32.0); MEAN CORPUSCULAR HGB CONC 35.3 g/dl (32.0-36.0); MEAN CORPUSCULAR VOLUME 86.8 fl (83.0-99.0); MEAN PLATELET VOLUME 9.2 fl (9.4-12.4); MONOCYTES ABSOLUTE AUTO 0.6 K/mm3 (0.0-0.8); MONOCYTES PERCENT AUTO 13.6 % (0.0-8.0); NEUTROPHILS ABSOLUTE AUTO 2.5 K/mm3 (1.8-7.7); PLATELET COUNT,PLT 216 K/mm3 (150-400); WHITE BLOOD CELL COUNT,WBC 4.26 K/mm3 (3.9-11.3)
== END 2022-11-16 06:40 | disposition home or self-care (01) ==
LOC: JD.ED 04:26
DX: K52.9 Noninfective gastroenteritis and colitis, unspecified (principal); E66.9 Obesity, unspecified; Z20.822 Contact with and (suspected) exposure to COVID-19; Z79.899 Other long term (current) drug therapy; Z88.8 Allergy status to other drugs, medicaments and biological substances
CPT/HCPCS: 0241U; 36415; 80053; 85025; 96361; 96374; 99284; J2405; J7030

== ENCOUNTER 2024-02-26 15:31 | Emergency (ER) | payer MEDICARE, MEDICAID ==
[2024-02-26 17:30] LABS: BASOPHILS PERCENT AUTO 0.5 % (0.0-1.0); EOSINOPHILS ABSOLUTE AUTO 0.1 K/mm3 (0.0-0.4); EOSINOPHILS PERCENT AUTO 1.6 % (0.0-6.0); HEMATOCRIT 42.5 % (42.0-52.0); HEMOGLOBIN 14.4 gm/dl (14.0-18.0); IMMATURE GRAN ABSOLUTE AUTO 0.01 K/mm3 (0.00-0.05); IMMATURE GRAN PERCENT AUTO 0.2 % (0.0-0.4); LYMPHOCYTES ABSOLUTE AUTO 1.8 K/mm3 (1.0-4.8); LYMPHOCYTES PERCENT AUTO 31.2 % (24.0-44.0); MEAN CORPUSCULAR HEMOGLOBIN 29.8 pg (28.0-32.0); MEAN CORPUSCULAR HGB CONC 33.9 g/dl (32.0-36.0); MEAN CORPUSCULAR VOLUME 87.8 fl (83.0-99.0); MEAN PLATELET VOLUME 8.7 fl (9.4-12.4); MONOCYTES ABSOLUTE AUTO 0.3 K/mm3 (0.0-0.8); MONOCYTES PERCENT AUTO 5.6 % (0.0-8.0); NEUTROPHILS ABSOLUTE AUTO 3.5 K/mm3 (1.8-7.7); NEUTROPHILS PERCENT AUTO 60.9 % (41.0-71.0); PLATELET COUNT,PLT 224 K/mm3 (150-400); RED BLOOD CELL COUNT 4.84 M/mm3 (4.52-5.90); WHITE BLOOD CELL COUNT,WBC 5.73 K/mm3 (3.9-11.3)
[2024-02-26 18:10] LABS: A/G RATIO 1.5 (1-2); ALBUMIN 4.2 g/dl (3.4-5.0); ANION GAP 9.7 (5-15); BILIRUBIN TOTAL 1.2 mg/dL (0.2-1.0); CALCIUM 9.3 mg/dL (8.5-10.1); EST CRCL DRUG DOSING (CG) 84.55 mL/min; POTASSIUM,K 3.7 mEq/L (3.5-5.1); TSH 1.403 uIU/mL (0.358-3.74)
[2024-02-26 19:01] LABS: APPEARANCE,URINE CLEAR (Clear); BILIRUBIN,URINE NEGATIVE (Negative); COLOR,URINE YELLOW (Yellow); GLUCOSE,URINE NEGATIVE (Negative); KETONES,URINE NEGATIVE (Negative); LEUKOCYTE ESTERASE,URINE NEGATIVE (Negative); NITRITE,URINE NEGATIVE (Negative); OCCULT BLOOD,URINE NEGATIVE (Negative); PROTEIN,URINE NEGATIVE (Negative); UROBILINOGEN,URINE 0.2 (0.2-1.0)
[2024-02-26 19:14] LABS: BARBITURATE SCREEN,URINE NEGATIVE (CUTOFF=200); BENZODIAZEPINES SCREEN,URINE NEGATIVE (CUTOFF=150); BUPRENORPHINE SCREEN,URINE NEGATIVE (CUTOFF=10); METHADONE SCREEN, URINE NEGATIVE (CUT0FF=200); METHAMPHETAMINES SCREEN, URINE NEGATIVE (CUTOFF=500); OXYCODONE SCREEN,URINE NEGATIVE (CUT0FF=100); THC SCREEN,URINE 20 NG/ML NEGATIVE (CUTOFF=50)
[2024-02-26 19:23] LABS: AMPHETAMINES SCREEN, URINE NEGATIVE (CUTOFF=500)
== END 2024-02-26 22:00 ==
LOC: JD.ED 15:31
DX: R45.851 Suicidal ideations (principal); E66.9 Obesity, unspecified; Z68.33 Body mass index [BMI] 33.0-33.9, adult; Z79.899 Other long term (current) drug therapy
CPT/HCPCS: 36415; 80053; 80143; 80179; 80306; 80307; 81003; 84443; 85025; 87428-QW; 93005; 99285